=== PATIENT | female | born 1950 | race Caucasian/White ===

== ENCOUNTER → 2017-01-03 | Outpatient (CLI) | payer BC ==
[~2017-01-03] MED LIST: CALC-20 PO; CHOL100010 PO; CHOL100027 PO; CITA20TA9 PO; CLTP PO; CZR25 PO; DSY100 PO; IBUP-103 PO; METO10TA3 PO; OMEP40CA PO; OMEP40CA41 PO; ONDA4TAB10 SL; OXYC5TAB PO; PRAV20TA PO; PRAV40TA2 PO; SERT1TAB88 PO; TRAZ100T29 PO; XRL15 PO
[2017-01-03 12:28] LABS: BASO % 0.8 %; BASO ABS # 0.04 K/uL (0-0.2); COMPLETE YES; EOS % 2.4 %; HEMATOCRIT 39.1 % (37-47); IG% 0.2 %; LYMPH % 29.3 %; LYMPH ABS # 1.44 K/uL (1.2-3.4); MEAN CELL VOLUME 90.3 fL (80-100); MEAN CORPUSCULAR HEMOGLOBIN 30.7 pg (25-34); MEAN PLATELET VOLUME 12.8 fL (7.4-10.4); MONO % 9.3 %; PLATELET COUNT 229 K/uL (130-400); RED BLOOD COUNT 4.33 M/uL (4.2-5.4); WHITE BLOOD COUNT 4.92 K/uL (4.8-10.8)
[2017-01-03 13:04] LABS: ALT/SGPT 21 U/L (12-78); BLOOD UREA NITROGEN 22 mg/dl (7-18); BUN/CREATININE RATIO 30.5 (10-20); CALCIUM 9.1 mg/dl (8.5-10.1); CARBON DIOXIDE 26 mmol/L (21-32); CHLORIDE 106 mmol/L (98-107); CHOLESTEROL 234 mg/dl (0-200); CREATININE 0.73 mg/dl (0.60-1.20); GLUCOSE 101 mg/dl (70-99); SODIUM 140 mmol/L (136-145); TRIGLYCERIDES 148 mg/dl (0-150); VERY LOW DENSITY LIPOPROT CALC 30 mg/dl
[2017-01-03 13:14] LABS: ALB/GLOB RATIO 1.1 (0.9-2); ALKALINE PHOSPHATASE 72 U/L (45-117); AST/SGOT 14 U/L (15-37); CHOLESTEROL/HDL RATIO 4.1; HDL CHOLESTEROL 57 mg/dl; LDL CHOLESTEROL CALCULATED 147 mg/dl
== END | disposition home or self-care (01) ==
LOC: C.LABPBG 09:48
PROVIDERS: ATTEND Neuromusculoskeletal Medicine & OMM
DX: Z00.00 Encounter for general adult medical examination without abnormal findings (principal)

== ENCOUNTER 2017-06-19 20:51 | Emergency (ER) | payer BC ==
[~2017-06-19] VITALS: Ht 157.5 cm; Wt 84.1 kg
[~2017-06-19 20:51] MED LIST changes: -CALC-20 PO; -CHOL100027 PO; -CZR25 PO; -DSY100 PO; -IBUP-103 PO; -METO10TA3 PO; -OMEP40CA41 PO; -ONDA4TAB10 SL; -PRAV40TA2 PO; -SERT1TAB88 PO
[2017-06-19 21:00] VITALS: TEMP 36.8; Ht 157.5 cm; Wt 84.1 kg
[2017-06-19 21:12] VITALS: O2SAT 98
[2017-06-19] MEDS ORDERED: PROCHLORPERAZINE 5 MG/ML 2 ML VIAL IV STA (21:19)
[2017-06-19] MEDS ORDERED: DiphenhydrAMINE HCL 50 MG/ML VIAL IV STA (21:19)
[2017-06-19] MEDS ORDERED: SODIUM CHLORIDE 0.9% 1000ML 1,000 ML IV STA (21:19)
[2017-06-19] MEDS ORDERED: SODIUM CHLORIDE 0.9% 500ML 500 ML IV STA (21:19)
--- NOTE | 2017-06-19 21:32 | EMERGENCY ROOM VISIT NOTE ---
History Report prepared by Cheryl: Shine Medina Under the Supervision of: Dr. Ally Hayes M.D. First contact with patient: 21:12 Chief Complaint: HYPERTENSION Stated Complaint: HIGH BP, SANTOS, EMESIS STOMACH ACID History of Present Illness The patient is a 66 year old female who presents to the Emergency Room with complaints of a worsening headache for the past month, and she currently rates her discomfort as an 8/10 in severity. She additionally states that she has been having high blood pressure which is abnormal for her. The patient additionally states that she has been vomiting intermittently throughout the day , and she could not eat or drink anything. She denies any chest pain or shortness of breath. She states that she was put on Losartan yesterday, and today she could not keep it down. She states that she does not take any blood thinners. She states that her blood pressure was 180/90 prior to arrival. Source of History: patient Onset: a month ago Position: head, other (global) Quality: other (hypertension) Associated Symptoms: No chest pain, No SOB Review of Systems See HPI for pertinent positives & negatives. A total of 10 systems reviewed and were otherwise negative. Past Medical & Surgical Medical Problems: (1) Hypertension (2) Sebaceous cyst (3) Uterine endometriosis (4) Uterine prolapse Surgical Problems: (1) Hip Joint Replacement Status (2) Hip joint replacement status Family History Cancer FH: heart disease FHx: lung disease Hypertension Social History Smoking Status: Former Smoker Drug Use: none Marital Status: Housing Status: lives with family Occupation Status: employed Current/Historical Medications Scheduled Calcium Carbonate-Vitamin D (Calcium 600 + D), 1 TAB PO QAM Cholecalciferol (Vitamin D 1000 Unit), 1,000 INTER.UNIT PO QAM Losartan Potassium (Losartan Potassium), 25 MG PO QAM Metoclopramide HCl (Metoclopramide HCl), 10 MG PO QAM Omeprazole (Prilosec), 40 MG PO QAM Ondasetron Odt (Zofran Odt), 4 MG SL Q6H Pravastatin Sodium (Pravastatin Sodium), 40 MG PO QAM Sertraline HCl (Sertraline HCl), 25 MG PO QAM Trazodone HCl (Trazodone HCl), 100 MG PO HS Scheduled PRN Ibuprofen Tab (Advil), 200 MG PO UD PRN for Pain or Fever Allergies Coded Allergies: Cephalosporins (Verified Allergy, Unknown, 10/21/15) Physical Exam Vital Signs Date Time Temp Pulse Resp B/P (MAP) Pulse Ox O2 Delivery O2 Flow Rate FiO2 06/19/17 22:40 82 16 173/91 98 Room Air 06/19/17 21:27 83 06/19/17 21:12 98 Room Air 06/19/17 21:00 36.8 94 17 150/97 95 Room Air Physical Exam Vital signs reviewed. General: Well-appearing female, in no significant distress. Obese. HEENT: No scleral icterus, PERRLA, neck supple. Atraumatic. Cardiovascular: Regular rate and rhythm, no extra sounds. Pulmonary: Clear to auscultation bilaterally, normal work of breathing. Abdomen: Soft, nontender, nondistended, positive bowel sounds. Musculoskeletal: Atraumatic, no peripheral edema. Neurologic: Patient awake alert and oriented x 3, full strength in all 4 extremities. Cranial nerves 2 through 12 grossly intact. Skin: Warm, dry, no rash Medical Decision & Procedures ER Provider Diagnostic Interpretation: Radiology results as stated below per my review and radiologist interpretation: HEAD WITHOUT CONTRAST (CT) CT DOSE: 537.48 mGy.cm HISTORY: Nausea. Vomiting. Mental status change. SANTOS, vomiting TECHNIQUE: Multiaxial CT images of the head were performed without the use of intravenous contrast. A dose lowering technique was utilized adhering to the principles of ALARA. Comparison: None. Findings: The paranasal sinuses and mastoid air cells are clear. The calvarium and skull base are intact. The ventricles and sulci are within normal limits. There is no mass, hematoma, midline shift, or acute infarct. Impression: No acute intracranial abnormality. Age-related atrophy and chronic small vessel change. The above report was generated using voice recognition software. It may contain grammatical, syntax or spelling errors. Electronically signed by: Dawood Jacob M.D. 06/19/2017 9:51 PM Dictated Date/Time: 06/19/2017 9:51 PM Laboratory Results 06/19/17 21:15 Red Blood Count 4.62, Mean Corpuscular Volume 88.7, Mean Corpuscular Hemoglobin 31.2, Mean Corpuscular Hemoglobin Concent 35.1, Mean Platelet Volume 11.0, Neutrophils (%) (Auto) 83.6, Lymphocytes (%) (Auto) 11.4, Monocytes (%) (Auto) 4.4, Eosinophils (%) (Auto) 0.1, Basophils (%) (Auto) 0.4, Neutrophils # (Auto) 7.05, Lymphocytes # (Auto) 0.96, Monocytes # (Auto) 0.37, Eosinophils # (Auto) 0.01, Basophils # (Auto) 0.03 06/19/17 21:15 Test 06/19/17 21:15 06/19/17 21:25 06/19/17 22:45 White Blood Count 8.43 K/uL (4.8-10.8) Red Blood Count 4.62 M/uL (4.2-5.4) Hemoglobin 14.4 g/dL (12.0-16.0) Hematocrit 41.0 % (37-47) Mean Corpuscular Volume 88.7 fL (80-100) Mean Corpuscular Hemoglobin 31.2 pg (25-34) Mean Corpuscular Hemoglobin Concent 35.1 g/dl (32-36) Platelet Count 248 K/uL (130-400) Mean Platelet Volume 11.0 fL (7.4-10.4) Neutrophils (%) (Auto) 83.6 % Lymphocytes (%) (Auto) 11.4 % Monocytes (%) (Auto) 4.4 % Eosinophils (%) (Auto) 0.1 % Basophils (%) (Auto) 0.4 % Neutrophils # (Auto) 7.05 K/uL (1.4-6.5) Lymphocytes # (Auto) 0.96 K/uL (1.2-3.4) Monocytes # (Auto) 0.37 K/uL (0.11-0.59) Eosinophils # (Auto) 0.01 K/uL (0-0.5) Basophils # (Auto) 0.03 K/uL (0-0.2) RDW Standard Deviation 41.6 fL (36.4-46.3) RDW Coefficient of Variation 13.0 % (11.5-14.5) Immature Granulocyte % (Auto) 0.1 % Immature Granulocyte # (Auto) 0.01 K/uL (0.00-0.02) Anion Gap 8.0 mmol/L (3-11) Est Creatinine Clear Calc Drug Dose 93.7 ml/min Estimated GFR () 111.0 Estimated GFR (Non- 95.8 BUN/Creatinine Ratio 34.9 (10-20) Calcium Level 9.6 mg/dl (8.5-10.1) Magnesium Level 2.0 mg/dl (1.8-2.4) Total Bilirubin 0.9 mg/dl (0.2-1) Direct Bilirubin 0.2 mg/dl (0-0.2) Aspartate Amino Transf (AST/SGOT) 14 U/L (15-37) Alanine Aminotransferase (ALT/SGPT) 23 U/L (12-78) Alkaline Phosphatase 101 U/L (45-117) Total Creatine Kinase 61 U/L (26-192) Creatine Kinase MB 0.6 ng/ml (0.5-3.6) Creatine Kinase MB Ratio 1.0 (0-3.0) Total Protein 7.9 gm/dl (6.4-8.2) Albumin 3.9 gm/dl (3.4-5.0) Lipase 82 U/L (73-393) Bedside Troponin I < 0.030 ng/ml (0-0.045) Urine Color YELLOW Urine Appearance CLEAR (CLEAR) Urine pH 7.0 (4.5-7.5) Urine Specific [place] 1.009 (1.000-1.030) Urine Protein NEG (NEG) Urine Glucose (UA) NEG (NEG) Urine Ketones NEG (NEG) Urine Occult Blood NEG (NEG) Urine Nitrite NEG (NEG) Urine Bilirubin NEG (NEG) Urine Urobilinogen NEG (NEG) Urine Leukocyte Esterase MODERATE (NEG) Urine WBC (Auto) 10-30 /hpf (0-5) Urine RBC (Auto) 0-4 /hpf (0-4) Urine Hyaline Casts (Auto) 1-5 /lpf (0-5) Urine Epithelial Cells (Auto) >30 /lpf (0-5) Urine Bacteria (Auto) 4+ (NEG) Laboratory results per my review. Medications Administered Medications (Trade) Dose Ordered Sig/Tong Route Start Time Stop Time Status Last Admin Dose Admin Sodium Chloride 500 ml @ 999 mls/hr Q31M STAT IV 06/19/17 21:19 06/19/17 21:49 DC 06/19/17 21:35 999 MLS/HR Sodium Chloride 1,000 ml @ 150 mls/hr Q6H40M STAT IV 06/19/17 21:19 06/20/17 03:58 06/19/17 21:35 150 MLS/HR Prochlorperazine Edisylate (Compazine Inj) 10 mg NOW STAT IV 06/19/17 21:19 06/19/17 21:22 DC 06/19/17 21:35 10 MG Diphenhydramine HCl (Benadryl Inj) 25 mg NOW STAT IV 06/19/17 21:19 06/19/17 21:22 DC 06/19/17 21:36 25 MG Hydromorphone HCl (Dilaudid Inj) 0.5 mg NOW STAT IV 06/19/17 22:26 06/19/17 22:27 DC 06/19/17 22:39 0.5 MG Methylprednisolone Sodium Succinate (Solu-Medrol IV) 125 mg NOW STAT IV 06/19/17 22:27 06/19/17 22:28 DC 06/19/17 22:39 125 MG ECG Indication: other (headache) Rate (beats per minute): 100 Rhythm: normal sinus Findings: nonspecific-ST abn (Anterolateral), other (poor quality baseline) Comparison ECG Date: slightly worsened ST depression in lateral leads ED Course 2111: Past medical records reviewed. The patient was evaluated in room C2. A complete history and physical examination was performed. 2118: Benadryl Inj 25mg IV, Compazine Inj 10mg IV, Sodium Chloride 1000 ml @ 150 mls/hr IV, Sodium Chloride 500 ml @ 999 mls/hr IV 2219: I reevaluated the patient, and she states that she was still having a headache 2225: Dilaudid Inj 0.5mg IV 2226: Solu-Medrol 125mg IV Medical Decision Differential diagnosis: Intracranial hemorrhage, intracranial mass, migraine headache, tension headache , sinusitis, meningitis This patient was evaluated and appeared to be in no significant distress. Physical examination is fairly unrevealing. The patient was hydrated with normal saline solution, given IV Compazine and Benadryl. CT scan of the head was performed and reveals no evidence of acute intracranial pathology. Laboratory work is fairly unrevealing. Patient's EKG reveals T-wave flattening. Patient's cardiac enzymes are negative. The patient continued to have some discomfort at the time of my reevaluation. She was given 0.5 mg of IV Dilaudid with significant improvement in her pain. Blood pressure is mildly elevated however she was not able to keep her blood pressure medicine down today. Patient states these headaches have been ongoing for the last several months. She was advised to continue her blood pressure medication, she was given a prescription for Zofran ODT to be used as needed. She'll follow-up with her physician and return to the ER for worsening of symptoms or any medical concerns. Patient was discharged in care of her . Medication Reconcilliation Current Medication List: was personally reviewed by me Blood Pressure Screening Patient's blood pressure: Elevated blood pressure Blood pressure disposition: Referred to PCP Impression Primary Impression: Migraine headache Additional Impression: Hypertension Scribe Attestation The scribe's documentation has been prepared under my direction and personally reviewed by me in its entirety. I confirm that the note above accurately reflects all work, treatment, procedures, and medical decision making performed by me. Departure Information Dispostion Home / Self-Care Prescriptions Ondasetron Odt (ZOFRAN ODT) 4 Mg Tab 4 MG SL Q6H for Nausea, #15 TAB Prov: Ally Hayes M.D. 06/19/17 Referrals No Doctor, Assigned (PCP) Forms HOME CARE DOCUMENTATION FORM, IMPORTANT VISIT INFORMATION, WORK / SCHOOL INSTRUCTIONS Patient Instructions My [facility] Additional Instructions Diagnosis: Migraine headache, hypertension Zofran 4 mg ODT every 6 hours as needed for nausea. Drink plenty of clear fluids. Continue your blood pressure medication as prescribed. Follow-up with your primary care physician this week for reevaluation. Return to the ER for worsening of symptoms or any medical concerns. Problem Qualifiers
[2017-06-19 21:34] LABS: BASO % 0.4 %; BASO ABS # 0.03 K/uL (0-0.2); COMPLETE YES; EOS % 0.1 %; IG% 0.1 %; LYMPH % 11.4 %; LYMPH ABS # 0.96 K/uL (1.2-3.4); MEAN CELL VOLUME 88.7 fL (80-100); MEAN CORPUSCULAR HEMOGLOBIN 31.2 pg (25-34); MEAN CORPUSCULAR HGB CONC 35.1 g/dl (32-36); MONO % 4.4 %; NEUT % 83.6 %; PLATELET COUNT 248 K/uL (130-400); RED BLOOD COUNT 4.62 M/uL (4.2-5.4); WHITE BLOOD COUNT 8.43 K/uL (4.8-10.8)
[2017-06-19] MEDS ORDERED: DSY100 PO (21:40)
[2017-06-19] MEDS ORDERED: METO10TA3 PO (21:40)
[2017-06-19] MEDS ORDERED: CALC-20 PO (21:40)
[2017-06-19] MEDS ORDERED: CHOL100027 PO (21:40)
[2017-06-19] MEDS ORDERED: PRAV40TA2 PO (21:40)
[2017-06-19] MEDS ORDERED: SERT1TAB88 PO (21:40)
[2017-06-19] MEDS ORDERED: OMEP40CA41 PO (21:40)
[2017-06-19] MEDS ORDERED: CZR25 PO (21:40)
[2017-06-19 21:41] LABS: BUN/CREATININE RATIO 34.9 (10-20); CALCIUM 9.6 mg/dl (8.5-10.1); CREATININE 0.61 mg/dl (0.60-1.20); POTASSIUM 3.8 mmol/L (3.5-5.1)
[2017-06-19] MEDS ORDERED: IBUP-103 PO (21:41)
--- NOTE | 2017-06-19 21:52 | DIAGNOSTIC IMAGING REPORT ---
HEAD WITHOUT CONTRAST (CT) CT DOSE: 537.48 mGy.cm HISTORY: Nausea. Vomiting. Mental status change. SANTOS, vomiting TECHNIQUE: Multiaxial CT images of the head were performed without the use of intravenous contrast. A dose lowering technique was utilized adhering to the principles of ALARA. Comparison: None. Findings: The paranasal sinuses and mastoid air cells are clear. The calvarium and skull base are intact. The ventricles and sulci are within normal limits. There is no mass, hematoma, midline shift, or acute infarct. Impression: No acute intracranial abnormality. Age-related atrophy and chronic small vessel change. The above report was generated using voice recognition software. It may contain grammatical, syntax or spelling errors. Electronically signed by: Dawood Jacob M.D. 06/19/2017 9:51 PM Dictated Date/Time: 06/19/2017 9:51 PM
[2017-06-19] MEDS ORDERED: HYDROmorphone INJ 0.5 MG/0.5 ML SYR IV STA (22:26)
[2017-06-19] MEDS ORDERED: METHYLPREDNISOLONE 125 MG VIAL IV STA (22:27)
[2017-06-19 22:40] VITALS: BP 173/91; PULSE 82; O2SAT 98
[2017-06-19] MEDS ORDERED: ONDA4TAB10 SL (22:41)
[2017-06-19 23:07] LABS: URINE APPEARANCE CLEAR (CLEAR); URINE BILIRUBIN NEG (NEG); URINE COLOR YELLOW; URINE EPITHELIAL CELL AUTO >30 /lpf (0-5); URINE NITRITE NEG (NEG); URINE SPECIFIC GRAVITY 1.009 (1.000-1.030); UROBILINOGEN NEG (NEG); ZZUR CULT IF INDIC CLEAN CATCH YES
[2017-06-19 23:11] LABS: MANUAL MICROSCOPIC REQUIRED? NO; REVIEW REQ? NO
--- NOTE | 2017-06-22 15:02 | Pharmacy Progress Note ---
ED Pharmacist Culture FollowUp Date of Service: Jun 22, 2017. Patient with Klebsiella isolated from urine culture. No urinary symptoms documented. Urinalysis with a significant amount of epithelial cells. Isolation may represent contaminant (instead of infection). Discussed case with Dr. Sevilla who recommended repeat urine collection as outpatient. Called patient - left message to call back.
== END 2017-06-19 23:14 | disposition home or self-care (01) ==
LOC: C.EDB 20:53 → C.EDC 23:14
DX: G43.909 Migraine, unspecified, not intractable, without status migrainosus (principal); I10 Essential (primary) hypertension; N80.0 Endometriosis of uterus; N81.4 Uterovaginal prolapse, unspecified; Z80.9 Family history of malignant neoplasm, unspecified; Z82.49 Family history of ischemic heart disease and other diseases of the circulatory system; Z83.6 Family history of other diseases of the respiratory system; Z87.891 Personal history of nicotine dependence; Z79.899 Other long term (current) drug therapy

== ENCOUNTER → 2017-06-27 | Outpatient (CLI) | payer BC ==
[~2017-06-27] MED LIST changes: +CALC-20 PO; -CHOL100010 PO; +CHOL100027 PO; -CITA20TA9 PO; -CLTP PO; +CZR25 PO; +DSY100 PO; +IBUP-103 PO; +METO10TA3 PO; -OMEP40CA PO; +OMEP40CA41 PO; +ONDA4TAB10 SL; -OXYC5TAB PO; -PRAV20TA PO; +PRAV40TA2 PO; +SERT1TAB88 PO; -TRAZ100T29 PO; -XRL15 PO
[2017-06-27 17:40] LABS: BLOOD UREA NITROGEN 21 mg/dl (7-18); BUN/CREATININE RATIO 27.5 (10-20); CALCIUM 8.9 mg/dl (8.5-10.1); CARBON DIOXIDE 25 mmol/L (21-32); CHLORIDE 106 mmol/L (98-107); CREATININE 0.78 mg/dl (0.60-1.20); GLUCOSE 90 mg/dl (70-99); POTASSIUM 4.1 mmol/L (3.5-5.1); SODIUM 139 mmol/L (136-145)
== END | disposition home or self-care (01) ==
LOC: C.LABPBG 12:03
PROVIDERS: ATTEND Physician Assistant
DX: I10 Essential (primary) hypertension (principal)

== ENCOUNTER → 2017-12-03 | Outpatient (CLI) | payer OTHER | END | disposition home or self-care (01) | LOC: C.LABSPEC 14:43 | PROVIDERS: ATTEND Physician Assistant | DX: R35.0 Frequency of micturition (principal) ==

== ENCOUNTER → 2018-01-02 | Outpatient (CLI) | payer OTHER ==
[~2018-01-02] MED LIST changes: -ONDA4TAB10 SL
--- NOTE | 2018-01-03 14:43 | MAMMOGRAPHY REPORT ---
BILATERAL DIGITAL SCREENING MAMMOGRAM TOMOSYNTHESIS WITH CAD: 01/02/2018 CLINICAL HISTORY: Routine screening. Patient has no complaints. TECHNIQUE: Breast tomosynthesis in addition to standard 2D mammography was performed. Current study was also evaluated with a Computer Aided Detection (CAD) system. COMPARISON: Comparison is made to exams dated: 09/13/2016 mammogram, 08/15/2015 mammogram, 4 mammogram, 04/07/2013 mammogram, 01/15/2012 mammogram, and [facility] BREAST COMPOSITION: There are scattered areas of fibroglandular density in both breasts. FINDINGS: There is a stable benign circumscribed 5 mm mass in the medial posterior right breast, that appears similar in size dating back to at least 07/16/2014. A mass in the lateral posterior right b reast has decreased in size, confirming benignity. No new suspicious mass, architectural distortion or cluster of suspicious microcalcifications is seen. IMPRESSION: ACR BI-RADS CATEGORY 1: NEGATIVE There is no mammographic evidence of malignancy. A 1 year screening mammogram is recommended. The pa tient will receive written notification of the results. Approximately 10% of breast cancers are not detected with mammography. A negative mammographic report should not delay biopsy if a clinically suggestive mass is present. Verenice Reinoso M.D. ay/:01/02/2018 16:29:01 Stone Finisher: Reyna Golden, [facility] letter sent: Normal 1/2 BI-RADS Code: ACR BI-RADS Category 1: Negative
== END | disposition home or self-care (01) ==
LOC: C.MAMM 11:06
PROVIDERS: ATTEND Physician Assistant
DX: Z12.31 Encounter for screening mammogram for malignant neoplasm of breast (principal)

== ENCOUNTER → 2018-04-30 | Outpatient (CLI) | payer OTHER ==
[2018-04-30 12:45] LABS: BASO % 1.2 %; BASO ABS # 0.06 K/uL (0-0.2); EOS % 3.4 %; EOS ABS # 0.17 K/uL (0-0.5); HEMATOCRIT 39.9 % (37-47); IG# 0.01 K/uL (0.00-0.02); LYMPH % 28.3 %; MEAN CELL VOLUME 91.5 fL (80-100); MEAN CORPUSCULAR HEMOGLOBIN 29.8 pg (25-34); MEAN CORPUSCULAR HGB CONC 32.6 g/dl (32-36); MEAN PLATELET VOLUME 13.2 fL (7.4-10.4); MONO % 13.3 %; MONO ABS # 0.66 K/uL (0.11-0.59); NEUT % 53.6 %; NEUT ABS # 2.65 K/uL (1.4-6.5); PLATELET COUNT 227 K/uL (130-400); RED CELL DISTRIBUTION WIDTH CV 13.3 % (11.5-14.5); RED CELL DISTRIBUTION WIDTH SD 44.5 fL (36.4-46.3); WHITE BLOOD COUNT 4.95 K/uL (4.8-10.8)
[2018-04-30 13:23] LABS: ALBUMIN 3.5 gm/dl (3.4-5.0); ALKALINE PHOSPHATASE 83 U/L (45-117); ALT/SGPT 25 U/L (12-78); AST/SGOT 16 U/L (15-37); BLOOD UREA NITROGEN 27 mg/dl (7-18); CALCIUM 8.7 mg/dl (8.5-10.1); CARBON DIOXIDE 23 mmol/L (21-32); CREATININE 0.77 mg/dl (0.60-1.20); GLUCOSE 99 mg/dl (70-99); POTASSIUM 4.1 mmol/L (3.5-5.1); SODIUM 138 mmol/L (136-145)
== END | disposition home or self-care (01) ==
LOC: C.LABPBG 07:29
PROVIDERS: ATTEND Family Medicine
DX: R53.81 Other malaise (principal); R53.83 Other fatigue; R60.9 Edema, unspecified; I10 Essential (primary) hypertension; R07.89 Other chest pain